=== PATIENT | male | born 1950 | race Caucasian/White ===

== ENCOUNTER 2016-11-23 19:16 | Emergency (ER) | payer OTHER, BC ==
[~2016-11-23] VITALS: Ht 172.7 cm; Wt 68.0 kg
[2016-11-23 19:18] VITALS: TEMP 36.7; Ht 172.7 cm; Wt 68.0 kg
[2016-11-23] MEDS ORDERED: METOPROLOL TARTRATE 1 MG/ML VIAL IV STA ×2 (19:37→20:23)
[2016-11-23 19:44] VITALS: O2SAT 98
[2016-11-23 19:50] LABS: BASO % 0.2 %; BASO ABS # 0.02 K/uL (0-0.2); COMPLETE YES; EOS % 2.5 %; HEMATOCRIT 42.7 % (42-52); IG% 0.2 %; LYMPH % 32.6 %; LYMPH ABS # 3.11 K/uL (1.2-3.4); MEAN CELL VOLUME 97.5 fL (80-100); MEAN CORPUSCULAR HEMOGLOBIN 34.5 pg (25-34); MEAN CORPUSCULAR HGB CONC 35.4 g/dl (32-36); MONO % 5.7 %; NEUT % 58.8 %; PLATELET COUNT 180 K/uL (130-400); RED BLOOD COUNT 4.38 M/uL (4.7-6.1); WHITE BLOOD COUNT 9.54 K/uL (4.8-10.8)
[2016-11-23 20:07] LABS: ALT/SGPT 23 U/L (12-78); BLOOD UREA NITROGEN 14 mg/dl (7-18); BUN/CREATININE RATIO 10.5 (10-20); CALCIUM 8.8 mg/dl (8.5-10.1); CARBON DIOXIDE 29 mmol/L (21-32); CHLORIDE 103 mmol/L (98-107); GLUCOSE 99 mg/dl (70-99); POTASSIUM 4.3 mmol/L (3.5-5.1); SODIUM 141 mmol/L (136-145)
[2016-11-23 20:09] LABS: PARTIAL THROMBOPLASTIN RATIO 1.1; PROTHROMBIN TIME (PATIENT) 10.7 SECONDS (9.0-12.0)
[2016-11-23 20:18] LABS: ALKALINE PHOSPHATASE 82 U/L (45-117); AST/SGOT 14 U/L (15-37)
[2016-11-23] MEDS ORDERED: METO25TA3 PO (20:42)
[2016-11-23] MEDS ORDERED: TADA5TAB11 PO (20:42)
--- NOTE | 2016-11-23 21:23 | DIAGNOSTIC IMAGING REPORT ---
CHEST ONE VIEW PORTABLE HISTORY: Evaluate Fever/Sepsis COMPARISON: None. FINDINGS: The lungs are clear. Cardiac silhouette is normal in size. No pleural effusions. No pneumothorax. IMPRESSION: No acute process. Electronically signed by: Jaen Davila M.D. 11/23/2016 9:21 PM Dictated Date/Time: 11/23/2016 9:20 PM
--- NOTE | 2016-11-23 22:08 | EMERGENCY ROOM VISIT NOTE ---
History Report prepared by Eben: Wayne Hoyos Under the Supervision of: Dr. Odin Bray D.O. First contact with patient: 19:29 Chief Complaint: TACHYCARDIA Stated Complaint: TACHYCARDIA History of Present Illness The patient is a 66 year old male who presents to the Emergency Room with complaints of sudden tachycardia beginning a couple weeks prior to arrival. He states he wore a heart monitor two days ago and dropped it off for evaluation yesterday. The patient notes he was called forty-five minutes prior to arrival and referred to the ED after the heart monitor results were analyzed and revealed atrial tachycardia. He states he experiences intermittent irregular heartbeats and occasionally wakes up in the middle of the night to a racing heart. The patient notes a history of a heart attack in 2011. He denies having cardiac stents. 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 A total of 10 systems reviewed and were otherwise negative. Past Medical & Surgical Medical Problems: (1) Heart attack Family History Patient reports no known family medical history. Social History Smoking Status: Current Every Day Smoker Marital Status: Occupation Status: retired Current/Historical Medications Scheduled Aspirin (Aspirin Ec), 81 MG PO DAILY Metoprolol Succ (Toprol Xl) (Toprol-Xl), 25 MG PO DAILY Rosuvastatin Calcium (Crestor), 20 MG PO DAILY Tadalafil (Cialis), 5 MG PO UD Allergies Coded Allergies: No Known Allergies (Unverified , 11/23/16) Physical Exam Vital Signs Date Time Temp Pulse Resp B/P Pulse Ox O2 Delivery O2 Flow Rate FiO2 11/23/16 21:27 118 16 112/78 95 Room Air 11/23/16 20:40 117 18 114/88 95 Room Air 11/23/16 20:36 118 18 118/82 96 Room Air 11/23/16 20:31 118 20 127/97 98 Room Air 11/23/16 20:30 118 127/97 11/23/16 19:53 115 16 123/77 96 Room Air 11/23/16 19:49 98 Room Air 11/23/16 19:47 140 131/90 11/23/16 19:44 98 Room Air 11/23/16 19:35 128 11/23/16 19:18 36.7 129 18 169/83 98 Room Air Physical Exam CONSTITUTIONAL/VITAL SIGNS: Reviewed / noted above. GENERAL: Non-toxic in appearance. INTEGUMENTARY: Warm, dry, and [place]. HEAD: Normocephalic. EYES: without scleral icterus or trauma. ENT/OROPHARYNX: clear and moist. LYMPHADENOPATHY/NECK: Is supple without lymphadenopathy or meningismus. RESPIRATORY: Lungs clear and equal. CARDIOVASCULAR: Tachycardic rate and slightly irregular rhythm. GI/ABDOMEN: Soft and nontender. No organomegaly or pulsatile mass. No rebound or guarding. Normal bowel sounds. EXTREMITIES: Warm and well perfused. BACK: No CVA tenderness. NEUROLOGICAL: Intact without focal deficits. PSYCHIATRIC: normal affect. MUSCULOSKELETAL: Normally developed with good muscle tone. Medical Decision & Procedures ER Provider Diagnostic Interpretation: X ray results and stated below per my interpretation and radiology interpretation. CHEST ONE VIEW PORTABLE HISTORY: Evaluate Fever/Sepsis COMPARISON: None. FINDINGS: The lungs are clear. Cardiac silhouette is normal in size. No pleural effusions. No pneumothorax. IMPRESSION: No acute process. Electronically signed by: Jean Davila M.D. 11/23/2016 9:21 PM Laboratory Results 11/23/16 19:30 Red Blood Count 4.38, Mean Corpuscular Volume 97.5, Mean Corpuscular Hemoglobin 34.5, Mean Corpuscular Hemoglobin Concent 35.4, Mean Platelet Volume 11.0, Neutrophils (%) (Auto) 58.8, Lymphocytes (%) (Auto) 32.6, Monocytes (%) (Auto) 5.7, Eosinophils (%) (Auto) 2.5, Basophils (%) (Auto) 0.2, Neutrophils # (Auto) 5.61, Lymphocytes # (Auto) 3.11, Monocytes # (Auto) 0.54, Eosinophils # (Auto) 0.24, Basophils # (Auto) 0.02 11/23/16 19:30 Test 11/23/16 19:30 White Blood Count 9.54 K/uL (4.8-10.8) Red Blood Count 4.38 M/uL (4.7-6.1) Hemoglobin 15.1 g/dL (14.0-18.0) Hematocrit 42.7 % (42-52) Mean Corpuscular Volume 97.5 fL (80-100) Mean Corpuscular Hemoglobin 34.5 pg (25-34) Mean Corpuscular Hemoglobin Concent 35.4 g/dl (32-36) Platelet Count 180 K/uL (130-400) Mean Platelet Volume 11.0 fL (7.4-10.4) Neutrophils (%) (Auto) 58.8 % Lymphocytes (%) (Auto) 32.6 % Monocytes (%) (Auto) 5.7 % Eosinophils (%) (Auto) 2.5 % Basophils (%) (Auto) 0.2 % Neutrophils # (Auto) 5.61 K/uL (1.4-6.5) Lymphocytes # (Auto) 3.11 K/uL (1.2-3.4) Monocytes # (Auto) 0.54 K/uL (0.11-0.59) Eosinophils # (Auto) 0.24 K/uL (0-0.5) Basophils # (Auto) 0.02 K/uL (0-0.2) RDW Standard Deviation 51.5 fL (36.4-46.3) RDW Coefficient of Variation 14.4 % (11.5-14.5) Immature Granulocyte % (Auto) 0.2 % Immature Granulocyte # (Auto) 0.02 K/uL (0.00-0.02) Prothrombin Time 10.7 SECONDS (9.0-12.0) Prothromb Time International Ratio 1.0 (0.9-1.1) Activated Partial Thromboplast Time 27.7 SECONDS (21.0-31.0) Partial Thromboplastin Ratio 1.1 D-Dimer 200 ug/L FEU (0-500) Anion Gap 9.0 mmol/L (3-11) Est Creatinine Clear Calc Drug Dose 54.5 ml/min Estimated GFR () 66.4 Estimated GFR (Non- 57.3 BUN/Creatinine Ratio 10.5 (10-20) Calcium Level 8.8 mg/dl (8.5-10.1) Total Bilirubin 0.3 mg/dl (0.2-1) Direct Bilirubin < 0.1 mg/dl (0-0.2) Aspartate Amino Transf (AST/SGOT) 14 U/L (15-37) Alanine Aminotransferase (ALT/SGPT) 23 U/L (12-78) Alkaline Phosphatase 82 U/L (45-117) Total Creatine Kinase 80 U/L (39-308) Creatine Kinase MB 0.8 ng/ml (0.5-3.6) Creatine Kinase MB Ratio 1.0 (0-3.0) Troponin I < 0.015 ng/ml (0-0.045) Total Protein 7.1 gm/dl (6.4-8.2) Albumin 3.9 gm/dl (3.4-5.0) Lipase 270 U/L (73-393) Thyroid Stimulating Hormone (TSH) 1.190 uIu/ml (0.300-4.500) Laboratory results as stated above per my review. Medications Administered Medications (Trade) Dose Ordered Sig/Cailin Route Start Time Stop Time Status Last Admin Dose Admin Metoprolol Tartrate (Lopressor Iv) 5 mg NOW STAT IV 11/23/16 19:37 11/23/16 19:38 DC 11/23/16 19:47 5 MG Metoprolol Tartrate (Lopressor Iv) 10 mg NOW STAT IV 11/23/16 20:23 11/23/16 20:24 DC 11/23/16 20:30 10 MG ECG Indication: tachycardia Rate (beats per minute): 146 Rhythm: sinus tachycardia Findings: PAC, no ectopy, other (no acute injury) ED Course 1932: Previous medical records were reviewed. The patient was evaluated in room B5. A complete history and physical examination was performed. 1936: Ordered Lopressor Iv 5 mg IV. 2022: Ordered Lopressor Iv 10 mg IV. 2140: I spoke to Dr. Reyna [facility] (Cardiology) about the patients case, and he recommended doubling the Metoporol and to have the patient follow up with Dr. Villa, [facility] (Cardiology) this week. 2207: On reevaluation, the patient is doing well. I discussed the results and findings with the patient. He verbalized agreement of the treatment plan. The patient was discharged home. Medical Decision the differential was considered includes acute myocardial infarction, acute coronary syndrome, myocarditis, pericarditis, pericardial effusions /tamponade, esophageal perforation, thoracic aortic dissection, pulmonary embolism, pneumonia, pneumothorax, pancreatitis, shingles, acute cholecystitis, perforated abdominal viscus. This is a 66-year-old male who presents to the ED with a chief complaint of tachycardia. The patient states that he was having some outpatient testing and was found to have a tachycardia. The patient had an outpatient echocardiogram that showed an ejection fraction of 55%. The basal inferior wall was hypokinetic. The patient had a Holter monitor on that revealed tachycardia and the patient was sent here tonight. The patient does not complain of any symptoms at this time. He states occasionally he can feel his heart beating fast primarily at night. His felt that he had some exertional dyspnea going up the steps the other day. The patient denies any significant symptoms on a daily basis. He states that he checks his heart rate into does not seem to be as high as it is right now. Twelve-lead EKG here shows a sinus tach with PACs at a rate of 146. His CBC was normal. D-dimer is negative. Complete metabolic panel is normal. Troponin is negative. TSH is normal. A chest x- ray was negative for acute disease. The patient was given 50 mg of IV metoprolol. His heart rate did decrease into the 1 teens. I spoke with Dr. Reyna from cardiology. He recommends doubling the dose of Toprol-XL at the patient is taking and follow up with Dr. Paz. The patient is felt to be stable for discharge. Consults Time Called: 2119 Consulting Physician: ASHOK Beltran (Cardiology) Returned Call: 2140 I spoke to ASHOK Beltran (Cardiology) about the patients case, and he recommended doubling the Metoporol and to have the patient follow up with Dr. Villa, [facility] (Cardiology) this week. Impression Primary Impression: Tachycardia Scribe Attestation The scribe's documentation has been prepared under my direction and personally reviewed by me in its entirety. I confirm that the note above accurately reflects all work, treatment, procedures, and medical decision making performed by me. Departure Information Dispostion Home / Self-Care Referrals Mar Villeda M.D. (PCP) Forms HOME CARE DOCUMENTATION FORM, IMPORTANT VISIT INFORMATION, WORK / SCHOOL INSTRUCTIONS Patient Instructions [facility] Additional Instructions Double your Toprol XL. Followup with Dr. Paz this week. Return for any significant symptoms or concern.
[2016-11-23 22:30] VITALS: BP 116/96; PULSE 115; O2SAT 97
[2017-03-12] MEDS ORDERED: NTRGSL/4 UT (14:02)
[2017-03-12] MEDS ORDERED: IBUP-103 PO (14:03)
[2017-03-29] MEDS ORDERED: PRED1SUS OPL (09:05)
[2017-04-03] MEDS ORDERED: OFLO0.3S OP (09:28)
[2017-04-03] MEDS ORDERED: DIFL0.0519 (09:28)
[2017-04-03] MEDS ORDERED: ACET-1325 (09:28)
[2017-06-02] MEDS ORDERED: LORA-741 PO (14:02)
[2017-06-02] MEDS ORDERED: METO25TA3 PO (14:02)
[2017-07-08] MEDS ORDERED: NTRSL3 UT (11:26)
[2017-07-08] MEDS ORDERED: NICO1KIT TOP (11:26)
[2017-07-08] MEDS ORDERED: BUPR-79 PO (11:26)
[2017-07-23] MEDS ORDERED: PHEN-876 PO (08:24)
[2017-07-23] MEDS ORDERED: OXYC-57 PO (08:24)
== END 2016-11-23 22:33 | disposition home or self-care (01) ==
LOC: C.EDB 19:16
DX: R00.0 Tachycardia, unspecified (principal); I25.2 Old myocardial infarction; F17.200 Nicotine dependence, unspecified, uncomplicated; Z79.82 Long term (current) use of aspirin

== ENCOUNTER → 2017-03-20 | Day surgery (SDC) | payer OTHER, BC ==
[2017-03-12 14:03] VITALS: Ht 172.7 cm; Wt 70.0 kg
[~2017-03-20] VITALS: Ht 172.7 cm; Wt 70.0 kg
[~2017-03-20] MED LIST: 500ML BSS 0.3ML EPI 1:1000PF IRRIG ONE; ACET-1325; ACETAMINOPHEN 325 MG TAB PO PRN; AMVISC PLUS 0.8ML SYRINGE INT OCU ONE; ASPI81TA28 PO; ATROPINE SULFATE 0.1 MG/ML 5ML SYR IV PRN; AcetaZOLAMIDE 250 MG TAB PO SCH; BETAXOLOL HCL 0.25% OP SUSP PER DROP CHARGE OPL SCH; BRIMONIDINE TART 0.2% OP SOLN PER DROP CHARGE ONE; BSS FLUSH ONE; DIFL0.0519; ENDOCOAT 0.85ML SYRINGE INT OCU ONE; EpHEDrine SULFATE INJ 50 MG/ML AMP IV PRN; EpINEphrine INJ 1MG/ML AMP 1 MG/ML AMP ONE; IBUP-103 PO; LACTATED RINGER'S 1000ML 500 ML IV SCH; LIDOCAINE 4% OP SOLN DROP CHARGE ONE; LIDOCAINE 4% OP SOLN DROP CHARGE OPL SCH; LIDOCAINE HCL 1% MPF 2 ML VIAL ONE; LORA-741 PO; METO25TA3 PO; MIDAZOLAM HCL 1 MG/ML 2ML VIAL ONE; MIX: 4ML BSS 1ML EPI 1:1000 PF INSTIL ONE; MOXIFLOXACIN OPH SOLN PER DROP CHARGE ONE; NTRGSL/4 UT; OCUCOAT 1 ML SOLN IO ONE; OFLO0.3S OP; POVIDONE-IODINE OP SOLN 30 ML BTL ONE; PRED1SUS OPL; PROPARACAINE 0.5% OP SOLN PER DROP CHARGE OPL SCH; ROSU20TA PO; TADA5TAB11 PO; TOBRAMYCIN/DEXAMETHASONE OPH OINT PER APPLN CHARGE ONE
[2017-03-20] MEDS: PHENYLEPHRINE HCL 2.5% OP SOLN PER DROP CHARGE OPL SCH ×2 (07:15→07:21)
[2017-03-20] MEDS: TROPICAMIDE 1% OP SOLN PER DROP CHARGE OPL SCH ×2 (07:16→07:22)
--- NOTE | 2017-03-20 07:16 | History & Physical Bridge - SC ---
H&P Re-Evaluation Bridge Note: I have examined the patient, reviewed the History & Physical and in the interval since the performance of the History & Physical I have noted the following changes of clinical significance: No changes noted
[2017-03-20] MEDS: CYCLOPENTOLATE HCL 1% OP SOLN PER DROP CHARGE OPL SCH ×2 (07:17→07:23)
[2017-03-20] MEDS: MOXIFLOXACIN OPH SOLN PER DROP CHARGE OPL SCH ×2 (07:18→07:28)
--- NOTE | 2017-03-20 08:14 | Discharge Instructions-SurgCtr ---
Discharge Instructions Date of Service Mar 20, 2017. Visit Reason for Visit: Cataract Left Eye Discharge Discharge Diagnosis / Problem: lens implant left eye Discharge Goals Goal(s): Improve function Activity Recommendations Activity Limitations: resume your previous activity Lifting Limitations: no more than 10 pounds Exercise/Sports Limitations: gradually increase as tolerated May Resume Sexual Activity: when tolerated Shower/Bathe: tomorrow Driving or Machine Use: resume 1 day after discharge Anesthesia . Post Anesthesia Instructions: If you have had General Anesthesia or IV Sedation: * Do not drive today. * Resume driving when surgeon permits. * Do not make important decisions or sign legal documents today. * Call surgeon for: 1. Temperature elevations greater than 101 degrees F. 2. Uncontrollable pain. 3. Excessive bleeding. 4. Persistent nausea and vomiting. 5. Medication intolerance (nausea, vomiting or rash). * For nausea and vomiting use only clear liquids such as: tea, soda, bouillon until nausea subsides, then gradually increase diet as tolerated. * If you have any concerns or questions, call your surgeon's office. If physician is unavailable and it is an emergency, call 911 or go to the nearest emergency room. . Instructions / Follow-Up Instructions / Follow-Up ACTIVITY RECOMMENDATIONS: * Light activities. * Mild irritation and blurred vision are common for the first few days. * You may walk outside, read, watch television. * Redness around the white part of the eye is common. MEDICATIONS: Resume previous medications unless instructed otherwise by your surgeon. * Take white Diamox (Acetazolamide) tablet at 1 pm today. Start all eye drops at 1 pm today: * Eye drops (today and tomorrow): Durezol - one drop in operative eye every 3 hours while awake Ofloxacin - one drop in operative eye every 3 hours while awake SPECIAL CARE INSTRUCTIONS: * Tape plastic shield over eye to sleep at night. Call your doctor at with any concerns or problems. FOLLOW UP VISIT: Follow-up with Dr Washington at [place] office as scheduled. Diet Recommendations Home Diet: no limitations Procedures Procedures Performed: cataract extraction with lens implant Pending Studies Studies pending at discharge: no Medical Emergencies . Who to Call and When: Medical Emergencies: If at any time you feel your situation is an emergency, please call 911 immediately. . 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 . "Provider Documentation" section prepared by Carlos Washington. .
--- NOTE | 2017-03-20 08:16 | [facility] Operative Report ---
Operative Report Date of Service Mar 20, 2017. Operative Report 1. PREOPERATIVE DIAGNOSIS: Senile nuclear cataract, left eye. 2. POSTOPERATIVE DIAGNOSIS: Senile nuclear cataract, left eye. 3. PROCEDURE: Phacoemulsification of left cataract with posterior chamber lens implant, type Bausch [employer] Lomb, model MI60L, power +19.0 diopters. ANESTHESIA: Local standby. SURGEON: Dr. Washington. COMPLICATIONS: None. OPERATING TIME: 10 minutes. 4. OPERATION AND FINDINGS: DESCRIPTION OF PROCEDURE: The left pupil was dilated. The anesthetic was administered using a topical technique. The left eye was prepped and draped. A speculum was placed. A clear corneal incision was formed. The chamber was filled with Amvisc Plus and Endocoat. Epinephrine solution was used. A paracentesis was placed. A capsulorrhexis was performed. The nucleus was hydrodissected. The lens was removed with phacoemulsification. Time was 6.25 seconds. The aspiration unit was used to remove the cortex. The capsule was filled with Amvisc Plus. The lens implant was folded and placed into the capsule. The incision was hydrated. The Amvisc was aspirated. The wound was secure. The chamber was deep. The pupil was round. Brimonidine, TobraDex ointment and Vigamox solution were placed. The speculum was removed. The patient was returned to the Recovery Room in stable condition. I attest to the content of the Intraoperative Record and any orders documented therein. Any exceptions are noted below. The scribe's documentation has been prepared in my presence, under my direction and personally reviewed by me in its entirety. I confirm that the note above accurately reflects all work, treatment, procedures, and medical decision making performed by me. I personally scribed for Carlos Washington M.D. (MARIA GUADALUPE) on 03/20/17 at 08:16. Electronically submitted by Krystal Denny ([email or web address]).
[2017-03-20 08:19] VITALS: TEMP 36.3
[2017-03-20 08:39] VITALS: BP 122/81; PULSE 56; O2SAT 96
--- NOTE | 2017-03-20 08:52 | Anesthesia Progress Nt - [facility] ---
Anesthesia Post Op Note Date & Time Mar 20, 2017 at 08:52 Vital Signs Pain Intensity: 0 Vital Signs Past 12 Hours Date Time Temp Pulse Resp B/P (MAP) Pulse Ox O2 Delivery O2 Flow Rate FiO2 03/20/17 08:39 56 20 122/81 (95) 96 Room Air 03/20/17 08:19 36.3 54 20 123/80 (94) 95 Room Air 03/20/17 07:06 36.5 55 16 104/68 (80) 94 Room Air Notes Mental Status: alert / awake / arousable, participated in evaluation Pt Amnestic to Procedure: Yes Nausea / Vomiting: adequately controlled Pain: adequately controlled Airway Patency, RR, SpO2: stable & adequate BP & HR: stable & adequate Hydration State: stable & adequate Anesthetic Complications: no major complications apparent
== END | disposition home or self-care (01) ==
LOC: X.SURG 06:50
PROVIDERS: ATTEND Specialist
DX: H25.12 Age-related nuclear cataract, left eye (principal); Z79.82 Long term (current) use of aspirin; I25.2 Old myocardial infarction; I10 Essential (primary) hypertension; E78.00 Pure hypercholesterolemia, unspecified; F41.9 Anxiety disorder, unspecified; F32.9 Major depressive disorder, single episode, unspecified; I25.10 Atherosclerotic heart disease of native coronary artery without angina pectoris; E78.5 Hyperlipidemia, unspecified; Z87.442 Personal history of urinary calculi

== ENCOUNTER → 2017-04-03 | Day surgery (SDC) | payer OTHER, BC ==
[2017-03-29 09:07] VITALS: Ht 172.7 cm; Wt 70.0 kg
[~2017-04-03] VITALS: Ht 172.7 cm; Wt 70.0 kg
[~2017-04-03] MED LIST changes: -BETAXOLOL HCL 0.25% OP SUSP PER DROP CHARGE OPL SCH; +BETAXOLOL HCL 0.25% OP SUSP PER DROP CHARGE OPR SCH; -EpHEDrine SULFATE INJ 50 MG/ML AMP IV PRN; -LIDOCAINE 4% OP SOLN DROP CHARGE OPL SCH; +LIDOCAINE 4% OP SOLN DROP CHARGE OPR SCH; -PROPARACAINE 0.5% OP SOLN PER DROP CHARGE OPL SCH; +PROPARACAINE 0.5% OP SOLN PER DROP CHARGE OPR SCH
[2017-04-03] MEDS: PHENYLEPHRINE HCL 2.5% OP SOLN PER DROP CHARGE OPR SCH ×2 (09:42→09:47)
[2017-04-03] MEDS: TROPICAMIDE 1% OP SOLN PER DROP CHARGE OPR SCH ×2 (09:43→09:48)
[2017-04-03] MEDS: CYCLOPENTOLATE HCL 1% OP SOLN PER DROP CHARGE OPR SCH ×2 (09:44→09:49)
[2017-04-03] MEDS: MOXIFLOXACIN OPH SOLN PER DROP CHARGE OPR SCH ×2 (09:45→09:56)
--- NOTE | 2017-04-03 10:33 | Discharge Instructions-SurgCtr ---
Discharge Instructions Date of Service Apr 03, 2017. Visit Reason for Visit: Cataract Right Eye Discharge Discharge Diagnosis / Problem: lens implant right eye Discharge Goals Goal(s): Improve function Activity Recommendations Activity Limitations: resume your previous activity Lifting Limitations: no more than 10 pounds Exercise/Sports Limitations: gradually increase as tolerated May Resume Sexual Activity: when tolerated Shower/Bathe: tomorrow Driving or Machine Use: resume 1 day after discharge Anesthesia . Post Anesthesia Instructions: If you have had General Anesthesia or IV Sedation: * Do not drive today. * Resume driving when surgeon permits. * Do not make important decisions or sign legal documents today. * Call surgeon for: 1. Temperature elevations greater than 101 degrees F. 2. Uncontrollable pain. 3. Excessive bleeding. 4. Persistent nausea and vomiting. 5. Medication intolerance (nausea, vomiting or rash). * For nausea and vomiting use only clear liquids such as: tea, soda, bouillon until nausea subsides, then gradually increase diet as tolerated. * If you have any concerns or questions, call your surgeon's office. If physician is unavailable and it is an emergency, call 911 or go to the nearest emergency room. . Instructions / Follow-Up Instructions / Follow-Up ACTIVITY RECOMMENDATIONS: * Light activities. * Mild irritation and blurred vision are common for the first few days. * You may walk outside, read, watch television. * Redness around the white part of the eye is common. MEDICATIONS: Resume previous medications unless instructed otherwise by your surgeon. * Take white Diamox (Acetazolamide) tablet at 1 pm today. Start all eye drops at 1 pm today: * Eye drops (today and tomorrow): Durezol - one drop in operative eye every 3 hours while awake Ofloxacin - one drop in operative eye every 3 hours while awake SPECIAL CARE INSTRUCTIONS: * Tape plastic shield over eye to sleep at night. Call your doctor at with any concerns or problems. FOLLOW UP VISIT: Follow-up with Dr Washington at [place] office as scheduled. Diet Recommendations Home Diet: no limitations Procedures Procedures Performed: cataract extraction with lens implant Pending Studies Studies pending at discharge: no Medical Emergencies . Who to Call and When: Medical Emergencies: If at any time you feel your situation is an emergency, please call 911 immediately. . Non-Emergent Contact Non-Emergency issues call your: Tankroom Tender Call Non-Emergent contact if: your pain is not controlled [phone] . . "Provider Documentation" section prepared by Carlos Washington. .
--- NOTE | 2017-04-03 10:37 | [facility] Operative Report ---
Operative Report Date of Service Apr 03, 2017. Operative Report 1. PREOPERATIVE DIAGNOSIS: Senile nuclear cataract, right eye. 2. POSTOPERATIVE DIAGNOSIS: Senile nuclear cataract, right eye. 3. PROCEDURE: Phacoemulsification of right cataract with posterior chamber lens implant, type Bausch [employer] Lomb, model MI60L, power +19.5 diopters. ANESTHESIA: Local standby. SURGEON: Dr. Washington. COMPLICATIONS: None. OPERATING TIME: 10 minutes. 4. OPERATION AND FINDINGS: DESCRIPTION OF PROCEDURE: The right pupil was dilated. The anesthetic was administered using a topical technique. The right eye was prepped and draped. A speculum was placed. A clear corneal incision was formed. The chamber was filled with Amvisc Plus and Endocoat. Epinephrine solution was used. A paracentesis was placed. A capsulorrhexis was performed. The nucleus was hydrodissected. A dense lens was removed with phacoemulsification. Time was 7.74 seconds. The aspiration unit was used to remove the cortex. The capsule was filled with Amvisc Plus. The lens implant was folded and placed into the capsule. The incision was hydrated. The Amvisc was aspirated. The wound was secure. The chamber was deep. The pupil was round. Brimonidine, TobraDex ointment and Vigamox solution were placed. The speculum was removed. The patient was returned to the Recovery Room in stable condition. I attest to the content of the Intraoperative Record and any orders documented therein. Any exceptions are noted below. The scribe's documentation has been prepared in my presence, under my direction and personally reviewed by me in its entirety. I confirm that the note above accurately reflects all work, treatment, procedures, and medical decision making performed by me. I personally scribed for Carlos Washington M.D. (MARIA GUADALUPE) on 04/03/17 at 10:37. Electronically submitted by Krystal Denny ([email or web address]).
[2017-04-03 10:46] VITALS: BP 138/94; PULSE 60; TEMP 36.4; O2SAT 98
--- NOTE | 2017-04-03 10:49 | Anesthesia Progress Nt - [facility] ---
Anesthesia Post Op Note Date & Time Apr 03, 2017 at 10:49 Vital Signs Pain Intensity: 3 Vital Signs Past 12 Hours Date Time Temp Pulse Resp B/P (MAP) Pulse Ox O2 Delivery O2 Flow Rate FiO2 04/03/17 10:46 36.4 60 20 138/94 (109) 98 Room Air 04/03/17 09:30 36.5 60 16 117/81 (93) 96 Room Air Notes Mental Status: alert / awake / arousable, participated in evaluation Pt Amnestic to Procedure: Yes Nausea / Vomiting: adequately controlled Pain: adequately controlled Airway Patency, RR, SpO2: stable & adequate BP & HR: stable & adequate Hydration State: stable & adequate Anesthetic Complications: no major complications apparent
== END | disposition home or self-care (01) ==
LOC: X.SURG 08:33
PROVIDERS: ATTEND Specialist
DX: H25.11 Age-related nuclear cataract, right eye (principal); I10 Essential (primary) hypertension; E78.00 Pure hypercholesterolemia, unspecified; F17.210 Nicotine dependence, cigarettes, uncomplicated; Z79.82 Long term (current) use of aspirin

== ENCOUNTER 2017-06-02 15:18 | Emergency (ER) | payer OTHER, BC ==
[~2017-06-02] VITALS: Ht 172.7 cm; Wt 73.4 kg
[~2017-06-02 15:18] MED LIST changes: -500ML BSS 0.3ML EPI 1:1000PF IRRIG ONE; -ACETAMINOPHEN 325 MG TAB PO PRN; -AMVISC PLUS 0.8ML SYRINGE INT OCU ONE; -ASPI81TA28 PO; -ATROPINE SULFATE 0.1 MG/ML 5ML SYR IV PRN; -AcetaZOLAMIDE 250 MG TAB PO SCH; -BETAXOLOL HCL 0.25% OP SUSP PER DROP CHARGE OPR SCH; -BRIMONIDINE TART 0.2% OP SOLN PER DROP CHARGE ONE; -BSS FLUSH ONE; -ENDOCOAT 0.85ML SYRINGE INT OCU ONE; -EpINEphrine INJ 1MG/ML AMP 1 MG/ML AMP ONE; -LACTATED RINGER'S 1000ML 500 ML IV SCH; -LIDOCAINE 4% OP SOLN DROP CHARGE ONE; -LIDOCAINE 4% OP SOLN DROP CHARGE OPR SCH; -LIDOCAINE HCL 1% MPF 2 ML VIAL ONE; -MIDAZOLAM HCL 1 MG/ML 2ML VIAL ONE; -MIX: 4ML BSS 1ML EPI 1:1000 PF INSTIL ONE; -MOXIFLOXACIN OPH SOLN PER DROP CHARGE ONE; -OCUCOAT 1 ML SOLN IO ONE; -POVIDONE-IODINE OP SOLN 30 ML BTL ONE; -PROPARACAINE 0.5% OP SOLN PER DROP CHARGE OPR SCH; -ROSU20TA PO; -TOBRAMYCIN/DEXAMETHASONE OPH OINT PER APPLN CHARGE ONE
[2017-06-02 15:21] VITALS: TEMP 36.5; Ht 172.7 cm; Wt 73.4 kg
--- NOTE | 2017-06-02 15:54 | EMERGENCY ROOM VISIT NOTE ---
History Report prepared by Eben: Alva Aquino Under the Supervision of: Dr. Carlos Bartlett D.O. First contact with patient: 15:32 Chief Complaint: URINARY SYMPTOMS Stated Complaint: PASSING A LOT OF BLOOD Nursing Triage Summary: patient reports "I started passing blood in my urine today. It has happened before never went to a dr for it" History of Present Illness The patient is a 67 year old male who presents to the Emergency Room with complaints of persistent hematuria starting 1300 today. He has been urinating every 15-20 minutes. His urine seems to be mostly blood with clots. He is not having any trouble urinating. He has never had this much bleeding before. He notes that he did have intercourse this morning around 1130. He has had some hematuria in the past after intercourse which is usually not as bloody and clears up. He denies any injury or intercourse out of the ordinary. He has not seen a doctor for this. He denies any back pain or abdominal pain. He denies any history of prostate problems or bladder cancer. He has a history of CAD, erectile dysfunction, and hyperlipidemia. He has a history of atrial tachycardia and had a successful ablation in December. He smokes 1 ppd. He quit drinking 2 years ago. He had a kidney stone 1.5 years ago. He has not any pain like his kidney stone since then. 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 He denies any chemical exposures. Source of History: patient Onset: 1300 Position: other (global) Quality: other (hematuria) Timing: other (persistent) Associated Symptoms: No abdominal pain, No back pain Review of Systems See HPI for pertinent positives & negatives. A total of 10 systems reviewed and were otherwise negative. Past Medical & Surgical Medical Problems: (1) Heart attack Family History Patient reports no known family medical history. Social History Smoking Status: Current Every Day Smoker Marital Status: Occupation Status: retired Current/Historical Medications Scheduled Aspirin (Aspirin Ec), 81 MG PO QAM Metoprolol Succinate (Toprol Xl), 25 MG PO QPM Nitroglycerin (Nitrolingual Pumpspray), 1 SPRAY SL PRN UD Rosuvastatin Calcium (Crestor), 20 MG PO HS Tadalafil (Cialis), 20 MG PO UD Scheduled PRN Acetaminophen Tab (Tylenol), 650 MG PO Q6 PRN for Pain Lorazepam (Ativan), 0.5 MG PO HS PRN for Anxiety and/or Sedation Allergies Coded Allergies: No Known Allergies (Unverified , 04/03/17) Physical Exam Vital Signs Date Time Temp Pulse Resp B/P (MAP) Pulse Ox O2 Delivery O2 Flow Rate FiO2 06/02/17 17:48 76 16 110/86 98 06/02/17 16:39 70 16 161/90 97 Room Air 06/02/17 15:21 36.5 84 18 135/81 95 Room Air Physical Exam GENERAL: Patient is awake, alert, and in no acute distress. Patient is resting comfortably and showing no signs of anxiety EYES: The conjunctivae are clear. The pupils are round and reactive. EARS, NOSE, MOUTH AND THROAT: The nose is without any evidence of any deformity. Mucous membranes are moist tongue is midline NECK: The neck is nontender and supple. RESPIRATORY: Normal respiratory effort is noted there is no evidence of wheezing rhonchi or rales CARDIOVASCULAR: Regular rate and rhythm noted there no murmurs rubs or gallops normal S1 normal S2 GASTROINTESTINAL: The abdomen is soft. Bowel sounds are present in all quadrants. Abdomen is nontender : Circumcised male genitalia noted. Testicles are descended and nontender bilaterally. Blood at the ureteral meatus. BACK: No midline tenderness or or step-off noted range of motion in flexion extension as well as rotation no signs of muscle spasm noted MUSCULOSKELETAL/EXTREMITIES: There is no evidence of gross deformity full range of motion is noted in the hips and shoulders SKIN: There is no obvious evidence of any rash. There are no petechiae, pallor or cyanosis noted. NEUROLOGIC: Patient is awake alert and oriented x3 strength is symmetric patellar reflexes are 2+ bilaterally Medical Decision & Procedures ER Provider Diagnostic Interpretation: Radiology results as stated below per my review and radiologist interpretation: CT OF THE ABDOMEN AND PELVIS WITH CONTRAST CLINICAL HISTORY: Hematuria. Clots. COMPARISON STUDY: KUB May 05, 2014. TECHNIQUE: Following IV administration of 93 mL of Optiray-320, axial images of the abdomen and pelvis were obtained from the lung bases to the proximal femurs. Images were reviewed in the axial, sagittal, and coronal planes. IV contrast was administered without complication. A dose lowering technique was utilized adhering to the principles of ALARA. CT DOSE: 278.12 mGy.cm FINDINGS: The liver, spleen, adrenal glands, right kidney and pancreas are normal. Note is made of a 1.4 cm left renal cyst. There is no hydronephrosis or hydroureter. Sensitivity for detection of urothelial lesions is diminished on this exam due to lack of delayed phase imaging. There is a 6.5 x 3.8 cm hyperdensity within the dependent aspect of the bladder, just to the left of midline. The prostate is mildly enlarged. There is extensive atherosclerotic plaque of the abdominal aorta which is ectatic. There is no lymphadenopathy. There is no bowel obstruction. The appendix is normal. No suspicious osseous lesions are present. IMPRESSION: 1. 6.5 x 3.8 cm hyperdensity within the left posterior aspect of the bladder. This favors a blood clot although an underlying urothelial lesion cannot be excluded and could appear similar. Follow-up urologic consultation for consideration for cystoscopy is recommended. 2. No hydronephrosis or hydroureter. 3. 1.4 cm left renal cyst. Electronically signed by: Justin Preston M.D. 06/02/2017 4:59 PM Dictated Date/Time: 06/02/2017 4:51 PM Laboratory Results 06/02/17 16:09 Red Blood Count 4.45, Mean Corpuscular Volume 98.7, Mean Corpuscular Hemoglobin 34.2, Mean Corpuscular Hemoglobin Concent 34.6, Mean Platelet Volume 10.1, Neutrophils (%) (Auto) 78.2, Lymphocytes (%) (Auto) 15.9, Monocytes (%) (Auto) 5.2, Eosinophils (%) (Auto) 0.4, Basophils (%) (Auto) 0.1, Neutrophils # (Auto) 10.69, Lymphocytes # (Auto) 2.18, Monocytes # (Auto) 0.71, Eosinophils # (Auto) 0.06, Basophils # (Auto) 0.02 06/02/17 16:09 Test 06/02/17 16:06 06/02/17 16:09 06/02/17 16:17 Urine Color RED Urine Appearance TURBID (CLEAR) Urine pH (4.5-7.5) Urine Specific [place] 1.022 (1.000-1.030) Urine Protein (NEG) Urine Glucose (UA) (NEG) Urine Ketones (NEG) Urine Occult Blood (NEG) Urine Nitrite (NEG) Urine Bilirubin (NEG) Urine Urobilinogen (NEG) Urine Leukocyte Esterase (NEG) Urine RBC >30 /hpf (0-4) Urine WBC 5-10 /hpf (0-5) Urine Epithelial Cells 5-10 /lpf (0-5) Urine Bacteria NEG (NEG) White Blood Count 13.69 K/uL (4.8-10.8) Red Blood Count 4.45 M/uL (4.7-6.1) Hemoglobin 15.2 g/dL (14.0-18.0) Hematocrit 43.9 % (42-52) Mean Corpuscular Volume 98.7 fL (80-100) Mean Corpuscular Hemoglobin 34.2 pg (25-34) Mean Corpuscular Hemoglobin Concent 34.6 g/dl (32-36) Platelet Count 178 K/uL (130-400) Mean Platelet Volume 10.1 fL (7.4-10.4) Neutrophils (%) (Auto) 78.2 % Lymphocytes (%) (Auto) 15.9 % Monocytes (%) (Auto) 5.2 % Eosinophils (%) (Auto) 0.4 % Basophils (%) (Auto) 0.1 % Neutrophils # (Auto) 10.69 K/uL (1.4-6.5) Lymphocytes # (Auto) 2.18 K/uL (1.2-3.4) Monocytes # (Auto) 0.71 K/uL (0.11-0.59) Eosinophils # (Auto) 0.06 K/uL (0-0.5) Basophils # (Auto) 0.02 K/uL (0-0.2) RDW Standard Deviation 49.0 fL (36.4-46.3) RDW Coefficient of Variation 13.7 % (11.5-14.5) Immature Granulocyte % (Auto) 0.2 % Immature Granulocyte # (Auto) 0.03 K/uL (0.00-0.02) Prothrombin Time 10.5 SECONDS (9.0-12.0) Prothromb Time International Ratio 1.0 (0.9-1.1) Activated Partial Thromboplast Time 27.1 SECONDS (21.0-31.0) Partial Thromboplastin Ratio 1.0 Est Creatinine Clear Calc Drug Dose 66.3 ml/min Estimated GFR () 84.3 Estimated GFR (Non- 72.8 BUN/Creatinine Ratio 14.4 (10-20) Calcium Level 9.1 mg/dl (8.5-10.1) Total Bilirubin 0.3 mg/dl (0.2-1) Direct Bilirubin < 0.1 mg/dl (0-0.2) Aspartate Amino Transf (AST/SGOT) 14 U/L (15-37) Alanine Aminotransferase (ALT/SGPT) 23 U/L (12-78) Alkaline Phosphatase 74 U/L (45-117) Total Protein 7.3 gm/dl (6.4-8.2) Albumin 4.0 gm/dl (3.4-5.0) Lipase 241 U/L (73-393) Bedside Hemoglobin 15.3 g/dl (14.0-18.0) Bedside Hematocrit 45 % (42-52) Bedside Sodium 139 mEq/L (135-144) Bedside Potassium 3.8 mEq/L (3.3-5.0) Bedside Chloride 102 mEq/L (101-112) Bedside Total CO2 24 mEq/l (24-31) Anion Gap 18.0 mmol/L (16-25) Bedside Blood Urea Nitrogen 16 mg/dl (7-18) Bedside Creatinine 1.0 mg/dl (0.6-1.3) Bedside Glucose (other) 121 mg/dl (70-99) Bedside Ionized Calcium (Silvia) 1.23 mmol/l (1.12-1.32) Laboratory results per my review. ED Course 1533: The patient was evaluated in room C5. A complete history and physical examination were performed. 1719: I discussed the patient's case with Dr. Ozuna, [facility]. He will set the patient up for a scope as an outpatient. 1724: Upon reevaluation, the patient is resting comfortably. I discussed the results and treatment plan with him. He verbalized agreement of the treatment plan. He was discharged home. Medical Decision Nursing notes reviewed. Additional history is obtained from the patient's significant other. Differential diagnosis in this patient could include bleeding from the urethra from prostate bleeding from the bladder bleeding from the kidneys and tumor or mass trauma and other differential diagnoses were considered. The patient is a 67-year-old male who presented to the department for an evaluation of hematuria. The patient has noticed hematuria after intercourse over the last few weeks. The hematuria was self limiting and was not very severe however today he presented to the emergency department after having oliverio hematuria with significant clots noted. I discussed the patient's laboratory and radiographic studies with him and his significant other. I also discussed his case with the on-call urologist. At this time I feel the patient would benefit from a cystoscopy to further evaluate the cause of his bleeding. I discussed this plan with the patient he was encouraged to call the urologist in the morning to schedule a follow-up appointment. He was also encouraged to return to the emergency department immediately if symptoms change worsen or need arises. Medication Reconcilliation Current Medication List: was personally reviewed by me Blood Pressure Screening Patient's blood pressure: Elevated blood pressure Blood pressure disposition: Elevated BP felt to be situational Consults Time Called: 1712 Consulting Physician: Dr. Ozuna, [facility] Returned Call: [phone] I discussed the patient's case with him. He will set the patient up for a scope as an outpatient. Impression Primary Impression: Hematuria Scribe Attestation The scribe's documentation has been prepared under my direction and personally reviewed by me in its entirety. I confirm that the note above accurately reflects all work, treatment, procedures, and medical decision making performed by me. Departure Information Dispostion Home / Self-Care Referrals Igor Ozuna MD, Pricila Farias PA-C Forms HOME CARE DOCUMENTATION FORM, IMPORTANT VISIT INFORMATION Patient Instructions Hematuria, Hematuria Poss Causes, [facility] Additional Instructions Continue to drink plenty clear liquids. Call the urologist in the morning to schedule a follow-up appointment for a scope to determine the cause of the bleeding as well as the findings on CAT scan in your bladder. Return to the emergency apartment immediately if symptoms change worsen or the need arises. Problem Qualifiers Primary Impression: Hematuria Hematuria type: gross Qualified Codes: R31.0 - Gross hematuria
[2017-06-02] MEDS ORDERED: OPTIRAY 320 IV PRN (16:00)
[2017-06-02 16:23] LABS: BASO % 0.1 %; BASO ABS # 0.02 K/uL (0-0.2); COMPLETE YES; EOS % 0.4 %; HEMATOCRIT 43.9 % (42-52); IG% 0.2 %; LYMPH % 15.9 %; LYMPH ABS # 2.18 K/uL (1.2-3.4); MEAN CELL VOLUME 98.7 fL (80-100); MEAN CORPUSCULAR HEMOGLOBIN 34.2 pg (25-34); MEAN CORPUSCULAR HGB CONC 34.6 g/dl (32-36); MEAN PLATELET VOLUME 10.1 fL (7.4-10.4); MONO % 5.2 %; NEUT % 78.2 %; PLATELET COUNT 178 K/uL (130-400); RED BLOOD COUNT 4.45 M/uL (4.7-6.1); WHITE BLOOD COUNT 13.69 K/uL (4.8-10.8)
[2017-06-02 16:27] LABS: ISTAT HEMOGLOBIN 15.3 g/dl (14.0-18.0); ISTAT IONIZED CALCIUM 1.23 mmol/l (1.12-1.32)
[2017-06-02] MEDS ORDERED: TADA20TA PO (16:33)
[2017-06-02] MEDS ORDERED: NITR0.4S74 SL (16:33)
[2017-06-02] MEDS ORDERED: ACET325T96 PO (16:33)
[2017-06-02 16:36] LABS: PROTHROMBIN TIME (PATIENT) 10.5 SECONDS (9.0-12.0)
[2017-06-02 16:43] LABS: MANUAL MICROSCOPIC REQUIRED? YES; REVIEW REQ? NO; SULFASALICYLIC ACID POS (NEG); URINE APPEARANCE TURBID (CLEAR); URINE COLOR RED; URINE SPECIFIC GRAVITY 1.022 (1.000-1.030)
[2017-06-02 16:44] LABS: ALT/SGPT 23 U/L (12-78); BLOOD UREA NITROGEN 15 mg/dl (7-18); BUN/CREATININE RATIO 14.4 (10-20); CALCIUM 9.1 mg/dl (8.5-10.1); CARBON DIOXIDE 25 mmol/L (21-32); CHLORIDE 105 mmol/L (98-107); CREATININE 1.06 mg/dl (0.60-1.40); GLUCOSE 118 mg/dl (70-99); POTASSIUM 3.8 mmol/L (3.5-5.1); SODIUM 138 mmol/L (136-145)
[2017-06-02 16:47] LABS: URINE RBC >30 /hpf (0-4)
[2017-06-02 16:47] LABS: ALKALINE PHOSPHATASE 74 U/L (45-117); AST/SGOT 14 U/L (15-37)
[2017-06-02 16:49] LABS: URINE BACTERIA NEG (NEG)
--- NOTE | 2017-06-02 17:01 | DIAGNOSTIC IMAGING REPORT ---
CT OF THE ABDOMEN AND PELVIS WITH CONTRAST CLINICAL HISTORY: Hematuria. Clots. COMPARISON STUDY: KUB May 05, 2014. TECHNIQUE: Following IV administration of 93 mL of Optiray-320, axial images of the abdomen and pelvis were obtained from the lung bases to the proximal femurs. Images were reviewed in the axial, sagittal, and coronal planes. IV contrast was administered without complication. A dose lowering technique was utilized adhering to the principles of ALARA. CT DOSE: 278.12 mGy.cm FINDINGS: The liver, spleen, adrenal glands, right kidney and pancreas are normal. Note is made of a 1.4 cm left renal cyst. There is no hydronephrosis or hydroureter. Sensitivity for detection of urothelial lesions is diminished on this exam due to lack of delayed phase imaging. There is a 6.5 x 3.8 cm hyperdensity within the dependent aspect of the bladder, just to the left of midline. The prostate is mildly enlarged. There is extensive atherosclerotic plaque of the abdominal aorta which is ectatic. There is no lymphadenopathy. There is no bowel obstruction. The appendix is normal. No suspicious osseous lesions are present. IMPRESSION: 1. 6.5 x 3.8 cm hyperdensity within the left posterior aspect of the bladder. This favors a blood clot although an underlying urothelial lesion cannot be excluded and could appear similar. Follow-up urologic consultation for consideration for cystoscopy is recommended. 2. No hydronephrosis or hydroureter. 3. 1.4 cm left renal cyst. Electronically signed by: Justin Preston M.D. 06/02/2017 4:59 PM Dictated Date/Time: 06/02/2017 4:51 PM
[2017-06-02 17:48] VITALS: BP 110/86; PULSE 76; O2SAT 98
[2017-06-02] MEDS ORDERED: ROSU20TA PO (20:42)
[2017-06-02] MEDS ORDERED: ASPI81TA28 PO (20:42)
== END 2017-06-02 17:49 | disposition home or self-care (01) ==
LOC: C.EDB 15:19 → C.EDC 17:49
DX: R31.9 Hematuria, unspecified (principal); F17.200 Nicotine dependence, unspecified, uncomplicated; I51.9 Heart disease, unspecified; Z79.82 Long term (current) use of aspirin; Z79.899 Other long term (current) drug therapy

== ENCOUNTER → 2017-06-04 | Outpatient (CLI) | payer OTHER, BC ==
[~2017-06-04] MED LIST changes: -ACET-1325; +ACET325T96 PO; +ASPI81TA28 PO; -DIFL0.0519; -IBUP-103 PO; +NITR0.4S74 SL; -NTRGSL/4 UT; -OFLO0.3S OP; -PRED1SUS OPL; +ROSU20TA PO; +TADA20TA PO; -TADA5TAB11 PO
== END | disposition home or self-care (01) ==
LOC: C.PATHSPEC 17:16
PROVIDERS: ATTEND Urology
DX: N40.1 Benign prostatic hyperplasia with lower urinary tract symptoms (principal); R82.8 Abnormal findings on cytological and histological examination of urine

== ENCOUNTER 2017-07-23 05:21 | Day surgery (SDC) | payer OTHER, BC ==
[2017-07-08 11:27] VITALS: BMI 24.0
--- NOTE | 2017-07-08 12:14 | PAT Medication Instructions ---
Service Date Jul 08, 2017. Current Home Medication List Acetaminophen Tab (Tylenol), 650 MG PO Q6 PRN for Pain Aspirin (Aspirin Ec), 81 MG PO QAM Bupropion (Wellbutrin Sr), 150 MG PO BID Lorazepam (Ativan), 0.5 MG PO HS PRN for Anxiety and/or Sedation Metoprolol Succinate (Toprol Xl), 25 MG PO QPM Nicotine (Nicotine Transdermal Syst), 1 KIT TOP UD Nitroglycerin (Nitrolingual Pumpspray), 1 SPRAY SL PRN UD Nitroglycerin (Nitrostat), Unknown Dose UT PRN Rosuvastatin Calcium (Crestor), 20 MG PO HS Tadalafil (Cialis), 20 MG PO UD Medication Instructions For Your Scheduled Surgery -Continue as directed: Nitroglycerin (Nitrolingual Pumpspray), 1 SPRAY SL PRN UD Nitroglycerin (Nitrostat), Unknown Dose UT PRN - Contact your surgeon for instructions: Aspirin (Aspirin Ec), 81 MG PO QAM - Hold the following medications the morning of surgery: Tadalafil (Cialis), 20 MG PO UD - Take the following medications the morning of surgery with a sip of water: Nicotine (Nicotine Transdermal Syst), 1 KIT TOP UD Bupropion (Wellbutrin Sr), 150 MG PO BID Lorazepam (Ativan), 0.5 MG PO HS PRN for Anxiety and/or Sedation (if needed) Acetaminophen Tab (Tylenol), 650 MG PO Q6 PRN for Pain (if needed, can take up to four hours before surgery) - Take the following medications as scheduled the night before surgery: Rosuvastatin Calcium (Crestor), 20 MG PO HS Metoprolol Succinate (Toprol Xl), 25 MG PO QPM Bupropion (Wellbutrin Sr), 150 MG PO BID Lorazepam (Ativan), 0.5 MG PO HS PRN for Anxiety and/or Sedation (if needed) Acetaminophen Tab (Tylenol), 650 MG PO Q6 PRN for Pain (if needed) If you have any questions please call us at [phone] or [phone] or [phone]
[~2017-07-23] VITALS: Ht 172.7 cm; Wt 72.8 kg
[~2017-07-23 05:21] MED LIST changes: +BUPR-79 PO; +NICO1KIT TOP; +NTRSL3 UT
[2017-07-23 05:45] VITALS: BP 131/78; PULSE 59; TEMP 36.6; O2SAT 98; Ht 172.7 cm; Wt 72.8 kg
[2017-07-23] MEDS ORDERED: CIPROFLOXACIN / D5W 400 MG IV SCH (06:00)
[2017-07-23] MEDS ORDERED: LACTATED RINGER'S 1000ML 1,000 ML IV SCH (06:00)
[2017-07-23] MEDS ORDERED: EpHEDrine SULFATE 50MG/5ML SYR ONE (06:59)
[2017-07-23] MEDS ORDERED: LIDOCAINE HCL 2% 2 ML VIAL (20MG/ML) ONE (06:59)
[2017-07-23] MEDS ORDERED: PHENYLEPHRINE 100MCG/ML 5ML SYR ONE (06:59)
[2017-07-23] MEDS ORDERED: ONDANSETRON INJ 2 MG/ML 2 ML VIAL ONE (06:59)
[2017-07-23] MEDS ORDERED: PROPOFOL IV EMULSION 10 MG/ML 20 ML VIAL IV ONE (06:59)
[2017-07-23] MEDS ORDERED: MIDAZOLAM HCL 1 MG/ML 2ML VIAL ONE (07:00)
[2017-07-23] MEDS ORDERED: FENTANYL CITRATE INJ 50 MCG/1 ML 2 ML VIAL ONE (07:00)
[2017-07-23] MEDS ORDERED: ONDANSETRON INJ 2 MG/ML 2 ML VIAL IV PRN (08:15)
[2017-07-23] MEDS ORDERED: MEPERIDINE HCL 25 MG/ML CARP IV PRN (08:15)
[2017-07-23] MEDS ORDERED: EpHEDrine SULFATE INJ 50 MG/ML AMP IV PRN (08:15)
[2017-07-23] MEDS ORDERED: ATROPINE SULFATE 0.1 MG/ML 5ML SYR IV PRN (08:15)
[2017-07-23] MEDS ORDERED: LABETALOL HCL IV 5 MG/ML 20ML IV PRN (08:15)
[2017-07-23] MEDS ORDERED: FENTANYL CITRATE INJ 50 MCG/1 ML 2 ML VIAL IV PRN (08:15)
[2017-07-23] MEDS ORDERED: HYDROmorphone INJ 1 MG/ML SYR IV PRN (08:15)
[2017-07-23] MEDS ORDERED: PHEN-876 PO (08:24)
[2017-07-23] MEDS ORDERED: OXYC-57 PO (08:24)
--- NOTE | 2017-07-23 08:25 | Discharge Instructions ---
Discharge Instructions Date of Service Jul 23, 2017. Visit Reason for Visit: Bladder Tumor Discharge Discharge Diagnosis / Problem: Bladder Tumor Discharge Goals Goal(s): Therapeutic intervention Activity Recommendations Activity Limitations: resume your previous activity (take it easy today) Exercise/Sports Limitations: gradually increase as tolerated May Resume Sexual Activity: after one week Shower/Bathe: no limitations Driving or Machine Use: resume 1 day after discharge Anesthesia . Post Anesthesia Instructions: If you have had General Anesthesia or IV Sedation: * Do not drive today. * Resume driving when surgeon permits. * Do not make important decisions or sign legal documents today. * Call surgeon for: 1. Temperature elevations greater than 101 degrees F. 2. Uncontrollable pain. 3. Excessive bleeding. 4. Persistent nausea and vomiting. 5. Medication intolerance (nausea, vomiting or rash). * For nausea and vomiting use only clear liquids such as: tea, soda, bouillon until nausea subsides, then gradually increase diet as tolerated. * If you have any concerns or questions, call your surgeon's office. If physician is unavailable and it is an emergency, call 911 or go to the nearest emergency room. . Diet Recommendations Recommended Home Diet: resume previous diet Procedures Procedures Performed: Transurethral Resection Bladder Tumor Pending Studies Studies pending at discharge: no Medical Emergencies . Who to Call and When: Medical Emergencies: If at any time you feel your situation is an emergency, please call 911 immediately. . Non-Emergent Contact Non-Emergency issues call your: Urologist Call Non-Emergent contact if: temperature is above 101.5, your pain is not controlled . . "Provider Documentation" section prepared by Igor Ozuna. . [place] Drug Monitoring Program Search Results: patient reviewed within database
[2017-07-23] MEDS ORDERED: PHENAZOPYRIDINE HCL 200 MG TAB PO PRN (08:30)
[2017-07-23] MEDS ORDERED: OXYCODONE/ACETAMINOPHEN 5-325 TAB PO PRN (08:30)
--- NOTE | 2017-07-23 09:03 | [facility] Operative Report ---
Operative Report Operative Date Jul 23, 2017. Pre-Operative Diagnosis Bladder Tumor Post-Operative Diagnosis Bladder Tumor Procedure(s) Performed Transurethral Resection Bladder Tumor Surgeon Dr. Ozuna [employer] Apprentice Surgeon(s) none Estimated Blood Loss 1mL Findings Cystoscopic exam showed a normal anterior urethra. 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 There was a large tumor in the bladder on the left lateral wall both ureteral orifices were effluxing clear urine Specimens A: Tumor of prostactic fossa B: Bladder Tumor Large Drains none Anesthesia Gen. Complication(s) None Disposition Recovery Room / PACU Indications 67-year-old white male who on evaluation for hematuria was found to have a large bladder tumor being brought in for resection Description of Procedure After the induction of an adequate general anesthetic and appropriate timeout patient was placed in a dorsolithotomy position. Lower abdomen and genitalia were prepped with Hibiclens draped in a sterile fashion area fossa navicularis was dilated to 28 Nepali with [place] sounds. Routine cystoscopic exam was performed with the 30 and 70 lenses. Next a 24 Nepali resectoscope and hot cautery loop were inserted under direct vision. The tumor in the prostatic fossa was excised and handed off the table as a separate specimen. The area was then fulgurated for hemostasis. Next the large bladder tumor on the lateral wall was resected in its entirety care was taken to avoid injury to the left ureteral orifice after resecting the entire tumor and Ellik evacuator was used to evacuate the bladder tumor fragments which were handed off the table as specimen. Reinspection of the bladder showed no bleeding from the resection site there were no tumor fragments remaining in the bladder. Patient's bladder was then drained resectoscope sheath removed. Patient tolerated the procedure well and was taken recovery room in stable condition. All needle sponges counts are correct at the end of the case I attest to the content of the Intraoperative Record and any orders documented therein. Any exceptions are noted below.
[2017-07-23 09:10] VITALS: BP 132/84; PULSE 64; TEMP 36.4; O2SAT 100
--- NOTE | 2017-07-23 09:42 | Anesthesiology Progress Note ---
Anesthesia Post Op Note Date & Time Jul 23, 2017 at 09:41 Vital Signs Pain Intensity: 0 Vital Signs Past 12 Hours Date Time Temp Pulse Resp B/P (MAP) Pulse Ox O2 Delivery O2 Flow Rate FiO2 07/23/17 09:10 36.4 64 18 132/84 100 Room Air 0 07/23/17 08:50 36.0 62 17 124/74 100 Room Air 07/23/17 08:40 64 14 129/86 100 Mask 10 07/23/17 08:30 67 21 119/77 100 Mask 10 07/23/17 08:22 36.0 57 14 105/63 100 Mask 10 07/23/17 05:45 36.6 59 20 131/78 (95) 98 Room Air Notes Mental Status: alert / awake / arousable, participated in evaluation Pt Amnestic to Procedure: Yes Nausea / Vomiting: adequately controlled Pain: adequately controlled Airway Patency, RR, SpO2: stable & adequate BP & HR: stable & adequate Hydration State: stable & adequate Anesthetic Complications: no major complications apparent
[2017-07-23 09:45] VITALS: BP 154/84; PULSE 68; O2SAT 99
[2017-07-23] MEDS ORDERED: PHENAZOPYRIDINE HCL 200 MG TAB PO ONE (10:02)
[2017-07-23 10:10] VITALS: BP 133/77; PULSE 71; TEMP 36.4; O2SAT 99
== END 2017-07-23 10:15 | disposition home or self-care (01) ==
LOC: C.ACU 05:21
PROVIDERS: ATTEND Urology
DX: D49.4 Neoplasm of unspecified behavior of bladder (principal); E78.5 Hyperlipidemia, unspecified; I10 Essential (primary) hypertension; Z80.41 Family history of malignant neoplasm of ovary; Z82.49 Family history of ischemic heart disease and other diseases of the circulatory system; Z80.3 Family history of malignant neoplasm of breast; Z83.3 Family history of diabetes mellitus; I25.2 Old myocardial infarction; I25.10 Atherosclerotic heart disease of native coronary artery without angina pectoris; Z87.442 Personal history of urinary calculi; F41.9 Anxiety disorder, unspecified; F32.9 Major depressive disorder, single episode, unspecified; Z79.82 Long term (current) use of aspirin

== ENCOUNTER → 2017-10-31 | Outpatient (CLI) | payer OTHER, BC ==
[~2017-10-31] MED LIST changes: -ACET325T96 PO; -METO25TA3 PO; +METO25TA4 PO; +OXYC-57 PO; +PHEN-876 PO
== END | disposition home or self-care (01) ==
LOC: C.PATHSPEC 17:04
PROVIDERS: ATTEND Urology
DX: C67.9 Malignant neoplasm of bladder, unspecified (principal)